=== PATIENT | male | born 1995 | race Caucasian/White ===

== ENCOUNTER 2016-07-24 22:04 | Emergency (ER) | payer SELFPAY ==
[2016-07-24] MEDS ORDERED: Ketorolac 60 MG/2 ML SDV IM ONE (22:15)
--- NOTE | 2016-07-24 22:17 | EDM.PDOC ---
ED HISTORY OF PRESENT ILLNESS - General Chief Complaint: Cardiovascular Problem Stated Complaint: CHEST PAIN Time Seen by Provider: 07/24/16 22:15 Source of Information: Reports: Patient - History of Present Illness INITIAL COMMENTS - FREE TEXT/NARRATIVE: HISTORY AND PHYSICAL: History of present illness: [] Patient has had chest pains with left arm movement the last couple of days tonight he reached into the fridge to gravity soda and he says he developed 9/ 10 pain along left sternal border, he works as a welfare interviewer, I can reproduce pain with passive movement of his left arm as well as pushing on chest wall along the sternal border No association with diaphoresis shortness of breath no radiation to arm neck or jaw Review of systems: As per history of present illness and below otherwise all systems reviewed and negative. Past medical history: As per history of present illness and as reviewed below otherwise noncontributory. Surgical history: As per history of present illness and as reviewed below otherwise noncontributory. Social history: No reported history of drug or alcohol abuse. Family history: As per history of present illness and as reviewed below otherwise noncontributory. Physical exam: HEENT: Atraumatic, normocephalic, pupils reactive, negative for conjunctival pallor or scleral icterus, mucous membranes moist, throat clear, neck supple, nontender, trachea midline. Lungs: Clear to auscultation, breath sounds equal bilaterally, chest nontender. Heart: S1S2, regular, negative for clicks, rubs, or JVD. Abdomen: Soft, nondistended, nontender. Negative for masses or hepatosplenomegaly. Negative for costovertebral tenderness. Pelvis: Stable nontender. Genitourinary: Deferred. Rectal: Deferred. Extremities: Atraumatic, negative for cords or calf pain. Neurovascular unremarkable. Neuro: Awake, alert, oriented. Cranial nerves II through XII unremarkable. Cerebellum unremarkable. Motor and sensory unremarkable throughout. Exam nonfocal. Diagnostics: [] EKG Lab as below Therapeutics: [] Toradol 60 mg IM Impression: [] Reproducible chest wall pain Muscle spasm Definitive disposition and diagnosis as appropriate pending reevaluation and review of above. - Related Data Allergies/ADRs: Allergies Allergy/AdvReac Type Severity Reaction Status Date / Time No Known Allergies Allergy Verified 07/24/16 22:38 Home Meds: Home Meds . [No Known Home Meds] 07/24/16 [History] Past Medical History - Past Health History Medical/Surgical History: Denies Medical/Surgical History Social & Family History - Family History Family Medical History: Unobtainable - Tobacco Use Smoking Status *Q: Unknown Ever Smoked ED ROS GENERAL - Review of Systems Review Of Systems: ROS reveals no pertinent complaints other than HPI. ED EXAM, GENERAL - Physical Exam Exam: See Below Course - Vital Signs Last Recorded V/S: Last Vital Signs Temp 37.2 C 07/24/16 22:13 Pulse 79 07/24/16 22:13 Resp 17 07/24/16 22:13 BP 140/68 07/24/16 22:13 Pulse Ox 98 07/24/16 22:13 - Orders/Labs/Meds Orders: Active Orders 24 hr Category Date Time Status EKG 12 Lead [EKG Documentation Completion] [RC] STAT Care 07/24/16 22:29 Active Labs: Laboratory Tests 07/24/16 07/24/16 07/24/16 Range/Units 22:18 22:18 22:18 WBC 7.84 (4.0-11.0) K/uL RBC 4.97 (4.50-5.90) M/uL Hgb 14.5 (13.0-17.0) g/dL Hct 43.4 (38.0-50.0) % MCV 87.3 (80.0-98.0) fL MCH 29.2 (27.0-32.0) pg MCHC 33.4 (31.0-37.0) g/dL RDW Std Deviation 42.0 (28.0-62.0) fl RDW Coeff of [place] 13 (11.0-15.0) % Plt Count 202 (150-400) K/uL MPV 11.40 (7.40-12.00) fL Neut % (Auto) 53.0 (48.0-80.0) % Lymph % (Auto) 36.9 (16.0-40.0) % [place] % (Auto) 6.5 (0.0-15.0) % Eos % (Auto) 3.3 (0.0-7.0) % Baso % (Auto) 0.3 (0.0-1.5) % Neut # 4.2 (1.4-5.7) K/uL Lymph # 2.9 H (0.6-2.4) K/uL [place] # 0.5 (0.0-0.8) K/uL Eos # 0.3 (0.0-0.7) K/uL Baso # 0.0 (0.0-0.1) K/uL Nucleated RBC % 0.0 /100WBC Nucleated RBCs # 0 K/uL Sodium 141 (136-146) mmol/L Potassium 3.9 (3.5-5.1) mmol/L Chloride 107 (98-110) mmol/L Carbon Dioxide 25 (21-31) mmol/L BUN 18 (6.0-23.0) mg/dL Creatinine 1.0 (0.6-1.5) mg/dL Est Cr Clr Drug Dosing 103.68 mL/min Estimated GFR (MDRD) > 60.0 ml/min Glucose 94 (60-110) mg/dL Calcium 9.0 (8.8-10.8) mg/dL Total Bilirubin 0.5 (0.1-1.5) mg/dL AST 33 (5-40) IU/L ALT 42 (8-54) IU/L Alkaline Phosphatase 117 (40-150) Troponin I < 0.10 (0.0-0.29) NG/ML Total Protein 7.3 (6.0-8.0) g/dL Albumin 4.3 (3.5-5.0) g/dL Globulin 3.0 (2.0-3.5) g/dL Albumin/Globulin Ratio 1.4 (1.3-2.8) Amylase 63 (10-90) U/L Lipase 21 (7-80) U/L Meds: Medications Discontinued Medications Generic Name Dose Route Start Last Admin Trade Name Freq PRN Reason Stop Dose Admin Ketorolac Tromethamine 60 mg 07/24/16 22:15 07/24/16 22:24 Toradol IM 07/24/16 22:16 60 mg ONETIME ONE Administration Departure - Departure Time of Disposition: 22:55 Disposition: Home, Self-Care 01 Condition: good Clinical Impression: Chest wall pain, Muscle spasm Forms: ED Department Discharge Additional Instructions: Rest ice ibuprofen Return if symptoms persist or worsen Followup with primary care in 2 weeks The following information is given to patients seen in the emergency department who are being discharged to home. This information is to outline your options for follow-up care. We provide all patients seen in our emergency department with a follow-up referral. The need for follow-up, as well as the timing and circumstances, are variable depending upon the specifics of your emergency department visit. If you don't have a primary care physician on staff, we will provide you with a referral. We always advise you to contact your personal physician following an emergency department visit to inform them of the circumstance of the visit and for follow-up with them and/or the need for any referrals to a consulting specialist. The emergency department will also refer you to a specialist when appropriate. This referral assures that you have the opportunity for follow-up care with a specialist. All of these measure are taken in an effort to provide you with optimal care, which includes your follow-up. Under all circumstances we always encourage you to contact your private physician who remains a resource for coordinating your care. When calling for follow-up care, please make the office aware that this follow-up is from your recent emergency room visit. If for any reason you are refused follow-up, please contact the [facility] emergency department at and asked to speak to the emergency department charge nurse. - My Orders Last 24 Hours: My Active Orders 07/24/16 22:29 EKG 12 Lead [EKG Documentation Completion] [RC] STAT - Assessment/Plan Last 24 Hours: My Active Orders 07/24/16 22:29 EKG 12 Lead [EKG Documentation Completion] [RC] STAT
[2016-07-24 22:46] LABS: CHLORIDE,CL 107 mmol/L (98-110); SODIUM,NA 141 mmol/L (136-146)
[2016-07-24 22:57] VITALS: BP 132/78
== END 2016-07-24 23:04 | disposition home or self-care (01) ==
LOC: MW.ED 22:04
DX: R07.89 Other chest pain (principal); M62.838 Other muscle spasm
CPT/HCPCS: 36415; 80053; 82150; 83690; 84484; 85025; 93005; 96372; 99285; J1885; 99283

== ENCOUNTER 2016-09-29 21:40 | Emergency (ER) | payer SELFPAY ==
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
[2016-09-29 23:34] VITALS: BP 151/76
--- NOTE | 2016-09-30 19:53 | US ---
EXAM DATE: 09/29/16 PATIENT'S AGE: 21 Patient: RACHEL IRIZARRY Facility: [place], [place] Site . Site : 1995 Study: US Testicle [id number]/11/2017 10:46:29 PM Ordering Physician: John Perry Final Report: INDICATION: Left testicular pain TECHNIQUE: Ultrasound of the scrotum and contents. Sonographic mendiola-scale images were obtained with spectral and color Doppler waveform and spectral waveform analysis of the testicles. COMPARISON: None FINDINGS: Right testicle: 3.4 x 3.9 x 2.2 cm. Normal echotexture. No masses. No suspicious calcifications. Normal arterial and venous and blood flow using Doppler and spectral waveform analysis. Left testicle: 4.3 x 3.6 x 2.1 cm. Normal echotexture. No masses. No suspicious calcifications. Normal arterial and venous and blood flow using Doppler and spectral waveform analysis. Epididymis: Unremarkable bilaterally. Normal blood flow. Other: Small bilateral hydroceles. No sign of varicocele. Scrotal wall is normal. IMPRESSION: No evidence for testicular torsion or intratesticular mass. Small bilateral hydroceles. Dictated by Denise Gaffney MD @ Sep 29 2016 11:04PM (Electronic Signature) Report Signed by Proxy. JOSEP
--- NOTE | 2016-09-30 19:53 | US ---
EXAM DATE: 09/29/16 PATIENT'S AGE: 21 Patient: RACHEL IRIZARRY Facility: [place], [place] Site . Site : 1995 Study: US Testicle [id number]/11/2017 10:46:29 PM Ordering Physician: John Perry Final Report: INDICATION: Left testicular pain TECHNIQUE: Ultrasound of the scrotum and contents. Sonographic mendiola-scale images were obtained with spectral and color Doppler waveform and spectral waveform analysis of the testicles. COMPARISON: None FINDINGS: Right testicle: 3.4 x 3.9 x 2.2 cm. Normal echotexture. No masses. No suspicious calcifications. Normal arterial and venous and blood flow using Doppler and spectral waveform analysis. Left testicle: 4.3 x 3.6 x 2.1 cm. Normal echotexture. No masses. No suspicious calcifications. Normal arterial and venous and blood flow using Doppler and spectral waveform analysis. Epididymis: Unremarkable bilaterally. Normal blood flow. Other: Small bilateral hydroceles. No sign of varicocele. Scrotal wall is normal. IMPRESSION: No evidence for testicular torsion or intratesticular mass. Small bilateral hydroceles. Dictated by Denise Gaffney MD @ Sep 29 2016 11:04PM (Electronic Signature) Report Signed by Proxy. JOSEP
== END 2016-09-29 23:32 | disposition home or self-care (01) ==
LOC: MW.ED 21:40
DX: N43.3 Hydrocele, unspecified (principal)
CPT/HCPCS: 76870; 76870-26; 81001; 87491; 87591; 93976; 93976-26; 99282; 99284-25

== ENCOUNTER 2016-10-06 00:37 | Emergency (ER) | payer OTHER ==
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
[2016-10-06 02:34] VITALS: BP 128/71
== END 2016-10-06 01:22 | disposition home or self-care (01) ==
LOC: MW.ED 00:37
DX: S50.311A Abrasion of right elbow, initial encounter (principal); Z98.890 Other specified postprocedural states; V29.49XA Motorcycle driver injured in collision with other motor vehicles in traffic accident, initial encounter; Y92.410 Unspecified street and highway as the place of occurrence of the external cause
CPT/HCPCS: 99283; G0390; 99282

== ENCOUNTER 2016-10-16 00:10 | Emergency (ER) | payer SELFPAY ==
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
[2016-10-16 01:22] LABS: CHLORIDE,CL 107 mmol/L (98-110); SODIUM,NA 140 mmol/L (136-146)
[2016-10-16 06:44] VITALS: BP 109/65
--- NOTE | 2016-10-18 11:55 | CR ---
EXAM DATE: 10/16/16 PATIENT'S AGE: 21 Patient: RACHEL IRIZARRY Facility: [place], [place] Site . Site : 1995 Study: XRay Chest [id number]/28/2017 1:00:05 AM Ordering Physician: Doctor Edmond Final Report: INDICATIONS: Seizure. TECHNIQUE: Chest 1 view. COMPARISON: Chest radiograph January 25, 2016. FINDINGS: Lungs are suboptimally inflated but grossly clear. No evidence of pneumothorax or pleural effusion. Cardiac and mediastinal contours appear within normal limits. Upper abdomen and osseous structures show no acute abnormality. IMPRESSION: No evidence of acute cardiopulmonary disease. Dictated by Bairon Godfrey MD @ 10/16/2016 1:33:53 AM Dictated by: Bairon Godfrey MD @ 10/16/2016 01:34:02 (Electronic Signature) Report Signed by Proxy. [facility]
== END 2016-10-16 07:00 | disposition home or self-care (01) ==
LOC: MW.ED 00:10
DX: F10.10 Alcohol abuse, uncomplicated (principal)
CPT/HCPCS: 36415; 71010; 71010-26; 80053; 85025; 93005; 99283; 99285-25

== ENCOUNTER 2017-03-25 03:45 | Emergency (ER) | payer SELFPAY | END 2017-03-25 04:37 | disposition left against medical advice (07) | LOC: MW.ED 03:45 | DX: Z53.21 Procedure and treatment not carried out due to patient leaving prior to being seen by health care provider (principal) ==

== ENCOUNTER 2017-05-30 20:44 | Emergency (ER) | payer BC ==
[2017-05-30] MEDS ORDERED: Acetaminophen 500 MG Tab PO ONE (21:13)
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
[2017-05-30] MEDS ORDERED: Ketorolac 30 MG/ML SDV IVPUSH ONE (21:57)
[2017-05-30] MEDS ORDERED: Sodium Chloride 0.9% 1,000 ML IV ONE (21:57)
[2017-05-30] MEDS ORDERED: Sodium Chloride 0.9% 2.5 ML Syringe FLUSH PRN (21:57)
[2017-05-30] MEDS ORDERED: Sodium Chloride 0.9% 10 ML Syringe FLUSH PRN (21:57)
[2017-05-30 22:50] LABS: CHLORIDE,CL 104 mmol/L (98-110); SODIUM,NA 137 mmol/L (136-146)
[2017-05-30 23:52] VITALS: BP 129/65
--- NOTE | 2017-05-31 11:25 | CR ---
EXAM DATE: 05/30/17 PATIENT'S AGE: 22 Patient: RACHEL IRIZARRY Facility: [place], [place] Site . Site : 1995 Study: XRay Chest [id number] 10:55:54 PM Ordering Physician: John Perry Final Report: INDICATION: Pain, shortness of breath TECHNIQUE: Chest radiograph 2 views COMPARISON: 01/25/2016 FINDINGS: Mediastinum: The heart silhouette is normal in size and morphology. The mediastinum is normal in appearance. Lungs: Both lungs are unremarkable in appearance. No sign of pleural effusion seen. No pneumothorax is identified. Bones and soft tissue: Unremarkable for age. IMPRESSION: 1. No acute cardiopulmonary disease is seen. Dictated by: Lamont Cho MD @ 05/30/2017 22:58:14 (Electronic Signature) Report Signed by Proxy. [facility]
== END 2017-05-30 23:35 | disposition home or self-care (01) ==
LOC: MW.ED 20:44
DX: J06.9 Acute upper respiratory infection, unspecified (principal)
CPT/HCPCS: 36415; 71046; 80053; 85025; 87804; 96361; 96374; 99284; A9270; J1885; J7040; 99282

== ENCOUNTER 2017-06-18 13:52 | Emergency (ER) | payer BC ==
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
[2017-06-18] MEDS ORDERED: Acetaminophen/HYDROcodone 325-5 MG Tab PO ONE (15:37)
[2017-06-18 15:49] VITALS: BP 146/87
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
== END 2017-06-18 16:16 | disposition home or self-care (01) ==
LOC: MW.ED 13:52
DX: S02.31XA Fracture of orbital floor, right side, initial encounter for closed fracture (principal); S02.2XXA Fracture of nasal bones, initial encounter for closed fracture; W51.XXXA Accidental striking against or bumped into by another person, initial encounter; Y93.72 Activity, wrestling
CPT/HCPCS: 70450; 70486; 72125; 99284; A9270

== ENCOUNTER 2017-06-20 18:33 | Emergency (ER) | payer BC ==
[2017-06-20 18:59] VITALS: BP 146/97
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
== END 2017-06-20 19:15 | disposition home or self-care (01) ==
LOC: MW.ED 18:33
DX: S02.92XA Unspecified fracture of facial bones, initial encounter for closed fracture (principal); X58.XXXA Exposure to other specified factors, initial encounter
CPT/HCPCS: 99282; 99283

== ENCOUNTER 2017-10-13 23:21 | Emergency (ER) | payer BC ==
[2017-10-13 23:40] VITALS: BP 148/75
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
[2017-10-13] MEDS ORDERED: Cephalexin 500 MG Cap PO ONE (23:59)
--- NOTE | 2017-10-16 11:37 | CR ---
EXAM DATE: 10/13/17 PATIENT'S AGE: 22 Patient: RACHEL IRIZARRY Facility: [place], [place] Site . Site : 1995 Study: XRay Extremity Right Foot [id number]/25/2018 11:46:21 PM Ordering Physician: Doctor Edmond Final Report: HISTORY: Right foot pain. No injury. FINDINGS: Three views right foot demonstrates normal bone mineralization. There is normal alignment present. No fracture or radiopaque foreign body. Joint spaces are maintained. IMPRESSION: Normal right foot. Dictated by Stephanie Lim MD @ 10/14/2017 12:18:42 AM Dictated by: Stephanie Lim MD @ 10/14/2017 00:18:46 (Electronic Signature) Report Signed by Proxy. JOSEP
== END 2017-10-14 00:20 | disposition home or self-care (01) ==
LOC: MW.ED 23:21
DX: L60.0 Ingrowing nail (principal)
CPT/HCPCS: 36415; 73630; 84550; 85025; 99283; A9270; 99282

== ENCOUNTER 2017-10-28 21:39 | Emergency (ER) | payer SELFPAY ==
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
[2017-10-28 23:25] VITALS: BP 123/86
--- NOTE | 2017-10-30 14:52 | CR ---
EXAM DATE: 10/28/17 PATIENT'S AGE: 22 Patient: RACHEL IRIZARRY Facility: [place], [place] Site . Site : 1995 Study: XRay Extremity Right [id number]/9/2018 10:29:52 PM Ordering Physician: Merle Ledezma Final Report: Indication: Fall. Pain Technique: Two views of the right forearm Comparison: None available Findings: Bones: Alignment is normal. No fractures or bone lesions. Joint spaces: Unremarkable. Soft tissues: Unremarkable. Impression: Negative. Dictated by Silvino Berman MD @ 10/28/2017 11:05:31 PM Dictated by: Silvino Berman MD @ 10/28/2017 23:05:36 (Electronic Signature) Report Signed by Proxy. JOSEP
--- NOTE | 2017-10-30 14:53 | CR ---
EXAM DATE: 10/28/17 PATIENT'S AGE: 22 Patient: RACHEL IRIZARRY Facility: [place], [place] Site . Site : 1995 Study: XRay Extremity Right [id number]/9/2018 10:30:12 PM Ordering Physician: Merle Ledezma Final Report: Indication: Fall. Pain Technique: Two views of the right hand Comparison: None available Findings: Bones: No acute fracture or dislocation. A lucent focus in the lunate could represent a subchondral cyst. Joint spaces: Unremarkable. Soft tissues: Unremarkable. Impression: No acute fracture or dislocation. Dictated by Silvino Berman MD @ 10/28/2017 11:07:43 PM Dictated by: Silvino Berman MD @ 10/28/2017 23:07:47 (Electronic Signature) Report Signed by Proxy. [email or web address]
== END 2017-10-28 23:22 | disposition home or self-care (01) ==
LOC: MW.ED 21:39
DX: S60.221A Contusion of right hand, initial encounter (principal); W10.9XXA Fall (on) (from) unspecified stairs and steps, initial encounter
CPT/HCPCS: 73090-26-RT; 73090-RT; 73120-26-RT; 73120-RT; 99283

== ENCOUNTER 2018-01-05 20:17 | Emergency (ER) | payer SELFPAY ==
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
[2018-01-05 21:29] VITALS: BP 130/70
== END 2018-01-05 21:20 | disposition home or self-care (01) ==
LOC: MW.ED 20:17
DX: K04.7 Periapical abscess without sinus (principal)
CPT/HCPCS: 99282

== ENCOUNTER 2018-06-16 22:12 | Emergency (ER) | payer SELFPAY ==
[2018-06-16] MEDS ORDERED: Ondansetron 4 MG/2 ML SDV IVPUSH ONE (22:43)
[2018-06-16] MEDS ORDERED: Sodium Chloride 0.9% 1,000 ML IV ONE (22:43)
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
[2018-06-16 22:45] VITALS: BP 132/85
[2018-06-16] MEDS ORDERED: Ketorolac 30 MG/ML SDV IVPUSH ONE (22:46)
[2018-06-16] MEDS ORDERED: cefTRIAXone 1 GM Vial IVPUSH ONE (23:08)
[2018-06-16 23:56] LABS: CHLORIDE,CL 104 mmol/L (98-107); SODIUM,NA 139 mmol/L (136-148)
== END 2018-06-17 00:45 | disposition home or self-care (01) ==
LOC: MW.ED 22:12
DX: L03.012 Cellulitis of left finger (principal); Z79.899 Other long term (current) drug therapy
CPT/HCPCS: 36415; 80053; 81001; 83690; 84484; 85025; 87070; 96361; 96374; 96375; 99284; J0696; J1885; J2405; J7040

== ENCOUNTER 2021-11-12 15:34 | Emergency (ER) | payer SELFPAY ==
[2021-11-12] MEDS ORDERED: Ketorolac 30 MG/ML SDV IM ONE (16:54)
[2021-11-12 17:11] VITALS: BP 133/68; PULSE 78
== END 2021-11-12 17:09 | disposition home or self-care (01) ==
LOC: MW.ED 15:34
DX: S29.012A Strain of muscle and tendon of back wall of thorax, initial encounter (principal); S29.011A Strain of muscle and tendon of front wall of thorax, initial encounter; X50.0XXA Overexertion from strenuous movement or load, initial encounter
CPT/HCPCS: 71045; 71045-26; 93005; 93010; 96372; 99283; 99283-25

== ENCOUNTER 2024-09-10 16:11 | Emergency (ER) | payer BC ==
[2024-09-10] MEDS: Ondansetron 4 MG/2 ML SDV IVPUSH ONE (16:51)
[2024-09-10] MEDS: Sodium Chloride 0.9% 1,000 ML IV ONE (16:51)
[2024-09-10] MEDS: Ketorolac 30 MG/ML SDV IVPUSH ONE (16:55)
[2024-09-10 16:56] LABS: BASOPHILS ABSOLUTE AUTO 0.02 K/uL (0.00-0.20); BASOPHILS PERCENT AUTO 0.2 % (0.0-1.0); EOSINOPHILS ABSOLUTE AUTO 0.07 K/uL (0.00-0.45); EOSINOPHILS PERCENT AUTO 0.6 % (0.0-6.0); HEMATOCRIT 46.1 % (42.0-52.0); HEMOGLOBIN 16.4 g/dL (14.0-18.0); IMMATURE GRAN ABSOLUTE AUTO 0.03 K/uL (0.00-0.05); IMMATURE GRAN PERCENT AUTO 0.2 % (0.0-0.4); LYMPHOCYTES ABSOLUTE AUTO 0.45 K/uL (1.00-4.80); LYMPHOCYTES PERCENT AUTO 3.7 % (24.0-44.0); MEAN CORPUSCULAR HEMOGLOBIN 30.7 pg (28.0-32.0); MEAN CORPUSCULAR HGB CONC 35.6 g/dL (32.0-36.0); MEAN CORPUSCULAR VOLUME 86.2 fL (83.0-99.0); MONOCYTES ABSOLUTE AUTO 0.61 K/uL (0.00-0.80); NEUTROPHILS ABSOLUTE AUTO 10.97 K/uL (1.80-7.70); NEUTROPHILS PERCENT AUTO 90.3 % (41.0-71.0); PLATELET COUNT,PLT 214 K/uL (150-400); RED BLOOD CELL COUNT 5.35 M/uL (4.52-5.90); WHITE BLOOD CELL COUNT,WBC 12.15 K/uL (3.9-11.3)
[2024-09-10 17:25] LABS: A/G RATIO 1.3 (0.9-1.6); ALBUMIN 4.7 g/dL (3.4-5.0); BILIRUBIN TOTAL 0.9 mg/dL (0.2-1.0); CALCIUM 9.1 mg/dL (8.5-10.1); CARBON DIOXIDE,CO2 28.2 mmol/L (21.0-32.0); EST CRCL DRUG DOSING (CG) 96.59 mL/min; POTASSIUM,K 4.5 mmol/L (3.5-5.1); PROTEIN TOTAL,TP 8.4 g/dL (6.4-8.2)
[2024-09-10] MEDS: diphenhydrAMINE 50 MG/ML SDV IVPUSH ONE (17:27)
[2024-09-10 18:04] VITALS: BP 126/63; PULSE 95
[2024-09-10] MEDS: Iopamidol 755 MG/ML 500 ML Multipack Bottle IVPUSH STA (18:25)
== END 2024-09-10 20:01 | disposition home or self-care (01) ==
LOC: MW.ED 16:11
DX: A08.4 Viral intestinal infection, unspecified (principal); I10 Essential (primary) hypertension; Z75.3 Unavailability and inaccessibility of health-care facilities; Z88.6 Allergy status to analgesic agent; Z88.8 Allergy status to other drugs, medicaments and biological substances; Z79.899 Other long term (current) drug therapy
CPT/HCPCS: 36415; 71045; 74177; 80053; 83690; 85025; 87428; 96361; 96374; 96375; 99285; J1200; J1885; J2405; J7030; Q9967; 93010; 99284